=== PATIENT | female | born 1955 | race Caucasian/White ===

== ENCOUNTER → 2020-02-28 | Outpatient (CLI) | payer MEDICARE ==
[~2020-02-28] MED LIST: ACYCLOVIR 400400 MG PO; ALEVE220 M1 PO; BENADRYL25 MG PO; CLARITIN10 M3 PO; GARLIC OIL1000 MG PO; GLYBURIDE 5 MG T5 M1 PO; LISINOPRIL-HCT1 EACH PO; METFORMIN HCL500 M3 PO; NUCYNTA ER100 MG PO; OMEPRAZOLE40 MG PO; PRILOSEC 20 MG20 MG PO
== END ==
LOC: LAB 10:26
PROVIDERS: ATTEND Preventive Medicine Occupational Medicine
DX: Z01.812 Encounter for preprocedural laboratory examination (principal); Z20.828 Contact with and (suspected) exposure to other viral communicable diseases

== ENCOUNTER → 2020-03-02 | Day surgery (SDC) | payer MEDICARE ==
[~2020-03-02] VITALS: Ht 170.2 cm; Wt 88.5 kg
[2020-03-02 14:42] LABS: CALCIUM 9.3 mg/dL (8.5-10.1); CREATININE 1.3 mg/dL (0.6-1.0); POTASSIUM 4.3 mmol/L (3.5-5.1)
[2020-03-02 14:45] VITALS: BP 117/63
== END | disposition home or self-care (01) ==
LOC: OR 11:06
PROVIDERS: ATTEND Preventive Medicine Occupational Medicine
DX: Z45.42 Encounter for adjustment and management of neurostimulator (principal); M47.816 Spondylosis without myelopathy or radiculopathy, lumbar region; G89.4 Chronic pain syndrome; I10 Essential (primary) hypertension; E78.00 Pure hypercholesterolemia, unspecified; K21.9 Gastro-esophageal reflux disease without esophagitis; E11.9 Type 2 diabetes mellitus without complications; G47.30 Sleep apnea, unspecified; M79.7 Fibromyalgia; Z98.890 Other specified postprocedural states; Z79.899 Other long term (current) drug therapy; Z88.8 Allergy status to other drugs, medicaments and biological substances
CPT/HCPCS: 50010; 50101; 50386; 50417; 54118; 56524; 56526; 58393; 58394; 62110; 62850; 70005